=== PATIENT | female | born 1965 | race Hispanic/Latino ===

== ENCOUNTER 2021-08-27 12:50 | Observation (INO) | payer OTHER, SELFPAY ==
[2021-08-27 13:56] LABS: #Basophils 0.1 10x3/uL (0.0-0.2); #Eosinphils 0.2 10x3/uL (0.0-0.5); #Monocytes 0.4 10x3/uL (0.0-1.1); #Neutrophils 4.7 10x3/uL (1.5-8.4); %Basophils 0.6 % (0.0-2.0); %Eosinophils 2.9 % (0.0-6.0); %Lymphocytes 31.7 % (18.0-47.0); %Monocytes 5.2 % (0.0-10.0); %Neutrophils 59.1 % (40.0-75.0); Hemoglobin 12.5 g/dL (12.0-15.5); Mean Corpuscular HGB CONC 32.4 g/dL (32.0-36.0); Mean Corpuscular Hemoglobin 30.3 pg (27.0-33.0); Mean Corpuscular Volume 93.7 fl (81.6-98.3); Mean Platelet Volume 11.8 fl (7.4-10.4); Platelet Count 247 10x3/uL (150-450); Red Blood Cell (RBC) Count 4.12 10x6/uL (3.90-5.03); White Blood Cell (WBC) Count 7.9 10x3/uL (3.5-10.5)
[2021-08-27 13:57] LABS: ALT (SGPT) 20 U/L (8-55); AST (SGOT) 20 U/L (5-34); Albumin 3.9 g/dL (3.5-5.0); Alkaline Phosphatase 64 U/L (40-110); Anion Gap 10 mmol/L (10-20); BUN (Urea Nitrogen) 12 mg/dL (9.8-20.1); Bilirubin, Total 0.4 mg/dL (0.2-1.2); Calc. Creatinine Clearance 0 mL/min (70-130); Calcium 8.8 mg/dL (7.8-10.44); Carbon Dioxide 28 mmol/L (22-29); Chloride 106 mmol/L (98-107); Globulin 2.4 g/dL (2.4-3.5); Glucose 127 mg/dL (70-105); Potassium 4.9 mmol/L (3.5-5.1); Protein, Total 6.3 g/dL (6.0-8.3); Sodium 139 mmol/L (136-145)
[2021-08-27 14:34] LABS: Bilirubin Neg (Negative); Blood, Urine Negative (Negative); Clarity Clear (Clear); Glucose, Urine (Dipstick) Normal (Negative); Ketone, Urine Negative (Negative); Leukocyte Negative (Negative); Nitrite Negative (Negative); Protein, Urine (Dipstick) Negative (Neg-Trace); Urobilinogen Normal mg/dL (Less than 2)
[2021-08-27] MEDS ORDERED: Aspirin Chewable 81 MG TAB ONE (15:32)
[2021-08-27] MEDS ORDERED: Nitroglycerin 2% Ointment 1 INCH/1 GM Packet ONE (15:33)
[2021-08-27 18:02] LABS: Troponin I Less than 0.010 ng/mL (< 0.028)
[2021-08-27] MEDS ORDERED: Acetaminophen 650 MG Suppository PR PRN (18:32)
[2021-08-27 19:27] LABS: SARS-CoV-2 NAA Rapid Test Not Detected (NotDetected)
[2021-08-27 20:13] LABS: Troponin I Less than 0.010 ng/mL (< 0.028)
[2021-08-27] MEDS ORDERED: Acetaminophen 500 MG TAB ONE (21:23)
[2021-08-28 01:25] VITALS: BMI 19.7
[2021-08-28] MEDS: Sodium Chloride 0.9% 1,000 ML IV SCH ×2 (02:03→11:03)
[2021-08-28] MEDS: Acetaminophen 325 MG TAB PO PRN ×2 (02:26→11:02)
[2021-08-28] MEDS ORDERED: FLU VACC QS2021-22(6MOS UP)/PF 60 MCG/0.5 ML SYRINGE IM ONE (03:45)
[2021-08-28 04:47] LABS: #Basophils 0.1 10x3/uL (0.0-0.2); #Eosinphils 0.3 10x3/uL (0.0-0.5); #Monocytes 0.4 10x3/uL (0.0-1.1); %Basophils 0.7 % (0.0-2.0); %Eosinophils 3.6 % (0.0-6.0); %Lymphocytes 34.1 % (18.0-47.0); %Monocytes 5.3 % (0.0-10.0); %Neutrophils 55.9 % (40.0-75.0); Hemoglobin 11.9 g/dL (12.0-15.5); Mean Corpuscular HGB CONC 32.7 g/dL (32.0-36.0); Mean Corpuscular Hemoglobin 30.4 pg (27.0-33.0); Mean Corpuscular Volume 92.9 fl (81.6-98.3); Mean Platelet Volume 11.6 fl (7.4-10.4); Platelet Count 233 10x3/uL (150-450); RBC Distribution Width 13.1 % (11.5-14.5); Red Blood Cell (RBC) Count 3.92 10x6/uL (3.90-5.03); White Blood Cell (WBC) Count 7.2 10x3/uL (3.5-10.5)
[2021-08-28 04:53] LABS: Anion Gap 11 mmol/L (10-20); BUN (Urea Nitrogen) 13 mg/dL (9.8-20.1); Calc. Creatinine Clearance 61 mL/min (70-130); Calcium 8.4 mg/dL (7.8-10.44); Carbon Dioxide 25 mmol/L (22-29); Chloride 110 mmol/L (98-107); Glucose 124 mg/dL (70-105); Sodium 142 mmol/L (136-145)
[2021-08-28] MEDS ORDERED: hydrALAZINE 20 MG/ML VIAL SLOW IVP PRN (11:55)
[2021-08-28 16:31] VITALS: BP 160/103; TEMP 98
== END 2021-08-28 16:15 | disposition home or self-care (01) ==
LOC: CSHERS 12:50 → CSHTELE 16:55 → UNDOADMOB 08-28 01:16 → CSHTELE 08-28 01:16
PROVIDERS: ADMIT Student in an Organized Health Care Education/Training Program; ATTEND Internal Medicine
DX: R55 Syncope and collapse (principal); R07.89 Other chest pain; I10 Essential (primary) hypertension; F41.8 Other specified anxiety disorders; Z20.822 Contact with and (suspected) exposure to COVID-19
CPT/HCPCS: 36415; 70450; 72125; 80048; 80053; 81003; 84484; 85025; 85379; 93005; 93306; G0378; J7050; U0002

== ENCOUNTER 2021-08-31 15:58 | Emergency (ER) | payer OTHER ==
[2021-08-31] MEDS ORDERED: Lorazepam 1 MG TAB ONE (16:48)
== END 2021-08-31 16:48 | disposition home or self-care (01) ==
LOC: CSHERS 15:58
DX: K02.9 Dental caries, unspecified (principal); F41.9 Anxiety disorder, unspecified
CPT/HCPCS: 99283

== ENCOUNTER 2023-07-24 15:32 | Emergency (ER) | payer OTHER ==
[2023-07-24] MEDS ORDERED: Ketorolac Tromethamine 30 MG/ML VIAL ONE (17:07)
[2023-07-24] MEDS ORDERED: Cyclobenzaprine 10 MG TAB ONE (17:07)
[2023-07-24] MEDS ORDERED: predniSONE 20 MG TAB ONE (17:08)
== END 2023-07-24 17:23 | disposition home or self-care (01) ==
LOC: CSHERS 15:32
DX: M25.462 Effusion, left knee (principal); I10 Essential (primary) hypertension
CPT/HCPCS: 96372; J1885; J7512

== ENCOUNTER 2024-07-01 12:17 | Emergency (ER) | payer OTHER | END 2024-07-01 13:05 | disposition home or self-care (01) | LOC: CSHERS 12:17 | DX: B30.9 Viral conjunctivitis, unspecified (principal); I10 Essential (primary) hypertension | CPT/HCPCS: 99282 ==

== ENCOUNTER 2025-05-03 18:21 | Emergency (ER) | payer OTHER ==
[2025-05-03 19:46] LABS: #Basophils 0.06 10x3/uL (0.0-0.2); #Eosinophils 0.29 10x3/uL (0.0-0.5); #Monocytes 0.42 10x3/uL (0.0-1.1); #Neutrophils 5.09 10x3/uL (1.5-8.4); %Basophils 0.7 % (0.0-2.0); %Eosinophils 3.6 % (0.0-6.0); %Lymphocytes 26.9 % (18.0-47.0); %Monocytes 5.2 % (0.0-10.0); %Neutrophils 63.1 % (40.0-75.0); Hematocrit 37.3 % (34.9-44.5); Hemoglobin 12.8 g/dL (12.0-15.5); Mean Corpuscular Hemoglobin 30.9 pg (27.0-33.0); Mean Corpuscular Volume 90.1 fL (81.6-98.3); Platelet Count 285 10x3/uL (150-450); Red Blood Cell (RBC) Count 4.14 10x6/uL (3.90-5.03); White Blood Cell (WBC) Count 8.07 10x3/uL (3.5-10.5)
[2025-05-03 20:02] LABS: ALT (SGPT) 23 U/L (Less than 34); AST (SGOT) 19 U/L (11-34); Albumin 3.6 g/dL (3.1-4.5); Alkaline Phosphatase 73 U/L (40-110); Anion Gap 14 mmol/L (10-20); BUN (Urea Nitrogen) 13 mg/dL (9.8-20.1); Bilirubin, Total 0.3 mg/dL (0.3-1.2); Calc. Creatinine Clearance 0 mL/min (70-130); Calcium 8.6 mg/dL (7.8-10.44); Carbon Dioxide 24 mmol/L (22-29); Chloride 108 mmol/L (98-107); Globulin 3.2 g/dL (2.4-3.5); Glucose 120 mg/dL (70-105); Potassium 4.1 mmol/L (3.5-5.1); Sodium 142 mmol/L (136-145)
[2025-05-03 20:34] LABS: Troponin I Less than 0.010 ng/mL (< 0.028)
[2025-05-03] MEDS ORDERED: HYDROcodone/Acetaminophen 5/325 mg Tablet ONE (21:21)
== END 2025-05-03 21:19 | disposition home or self-care (01) ==
LOC: CSHERS 18:21
DX: M54.6 Pain in thoracic spine (principal); I10 Essential (primary) hypertension
CPT/HCPCS: 36415; 71045; 71275; 80053; 83880; 84484; 85025; 85379; 93005